=== PATIENT | female | born 1955 | race Caucasian/White ===

== ENCOUNTER 2019-08-09 20:35 | Emergency (ER) | payer MEDICARE ==
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
--- NOTE | 2019-08-09 21:55 | RADIOLOGY REPORT (SQ) ---
2 VIEWS OF LEFT HIP EXAM DATE: 08/09/2019 8:47 PM CARE TEAM ASSISTANT HISTORY: Hip pain post fall. COMPARISON: None. FINDINGS: No acute fracture or dislocation is seen. The joint spaces are preserved. No radiopaque foreign body is identified. IMPRESSION: No acute fracture or malalignment.
--- NOTE | 2019-08-09 21:56 | RADIOLOGY REPORT (SQ) ---
EXAM DESCRIPTION: XR SHOULDER 2 OR MORE VIEWS COMPLETED DATE/TME: 08/09/2019 20:47 CLINICAL HISTORY: 64 years Female fall pain and injury COMPARISON: None. TECHNIQUE: LEFT SHOULDER three view FINDINGS: No acute fractures or dislocations identified. No osseous destructive lesions. Acromioclavicular joint appears maintained. IMPRESSION: No acute fracture or dislocation identified.
[2019-08-09] MEDS ORDERED: HYDROCODONE/ACETAMINOPHEN 5-325 MG (6 TAB/ER DISP) PO PRN (23:40)
[2019-08-09] MEDS ORDERED: OXYCODONE-ACETAMINOPHEN 5-325 MG TABLET PO ONE (23:40)
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
[2019-08-10 00:10] VITALS: BP 139/87
== END 2019-08-10 00:13 | disposition home or self-care (01) ==
LOC: ER 20:35
DX: S40.012A Contusion of left shoulder, initial encounter (principal); S70.02XA Contusion of left hip, initial encounter; M79.10 Myalgia, unspecified site; M79.602 Pain in left arm; M79.605 Pain in left leg; Y01.XXXA Assault by pushing from high place, initial encounter; Z79.899 Other long term (current) drug therapy; I10 Essential (primary) hypertension
CPT/HCPCS: 99283; 73502; 73030; A9270 ×2

== ENCOUNTER → 2020-02-18 | Outpatient (CLI) | payer MEDICARE ==
[2020-02-18 11:49] LABS: ANION GAP 8 (5-19); BLOOD UREA NITROGEN 23 mg/dL (7-20); CALCIUM 9.9 mg/dL (8.4-10.2); CARBON DIOXIDE 30 mmol/L (22-30); CHLORIDE 100 mmol/L (98-107); GLUCOSE 114 mg/dL (75-110); POTASSIUM 4.1 mmol/L (3.6-5.0)
--- NOTE | 2020-02-18 14:59 | EKG REPORT ---
SEVERITY:- ABNORMAL ECG - SINUS RHYTHM PROBABLE LEFT ATRIAL ABNORMALITY INFERIOR INFARCT, AGE INDETERMINATE : Confirmed by: Katie Mcpherson MD 18-Feb-2020 14:58:50
== END ==
LOC: OD 10:14
PROVIDERS: ATTEND Orthopaedic Surgery
DX: Z01.810 Encounter for preprocedural cardiovascular examination (principal); Z01.89 Encounter for other specified special examinations
CPT/HCPCS: 36415; 80048; 93005; 93010